=== PATIENT | female | born 1940 | race Caucasian/White ===

== ENCOUNTER 2022-06-03 15:55 | Inpatient (IN) | payer BC, MEDICARE ==
[2022-06-03] MEDS ORDERED: HYDROmorphone 1 MG/ML Syringe IVPUSH ONE (16:29)
[2022-06-03] MEDS ORDERED: Ondansetron 4 MG/2 ML SDV IVPUSH PRN (16:31)
[2022-06-03] MEDS ORDERED: HYDROmorphone 0.5 MG/0.5 ML Syringe IVPUSH PRN (16:31)
[2022-06-03] MEDS: Dextrose 5%-Lactated Ringers 1,000 ML IV SCH (17:31)
[2022-06-03] MEDS: Pramipexole 0.5 MG Tab PO SCH (20:55)
[2022-06-04] MEDS: Dextrose 5%-Lactated Ringers 1,000 ML IV SCH ×2 (01:19→09:12)
[2022-06-04] MEDS: Lisinopril 20 MG Tab PO SCH (09:10)
[2022-06-04] MEDS: Potassium Phos in 0.9 % NaCl 15 MMOL in Premix Bag 1 BAG IV SCH ×4 (11:45→15:35)
[2022-06-04] MEDS ORDERED: SODIUM CHLORIDE 0.9% NERVRT SCH ×4 (12:00)
[2022-06-04] MEDS ORDERED: KETAMINE IV SCH (12:00)
[2022-06-04] MEDS ORDERED: ROPIVACAINE NERVRT SCH ×4 (12:00)
[2022-06-04] MEDS ORDERED: EPINEPHRINE NERVRT SCH ×4 (12:00)
[2022-06-04] MEDS ORDERED: DEXAMETHASONE NERVRT SCH ×4 (12:00)
[2022-06-04] MEDS ORDERED: SODIUM CHLORIDE 0.9% IV SCH (12:00)
[2022-06-04] MEDS ORDERED: Ketamine 500 MG/5 ML MDV IV SCH (12:00)
[2022-06-04] MEDS ORDERED: Acetaminophen 325 MG Tab PO PRN (17:55)
[2022-06-04] MEDS: Pramipexole 0.5 MG Tab PO SCH (20:56)
[2022-06-05] MEDS: Dextrose 5%-Lactated Ringers 1,000 ML IV SCH ×2 (01:49→09:48)
[2022-06-05 05:26] LABS: ESTIMATED GFR 94 mL/min (>60)
[2022-06-05] MEDS ORDERED: Bupivacaine 0.5% 50 ML MDV ONE (06:51)
[2022-06-05] MEDS ORDERED: Meropenem 500 MG SDV ONE (06:51)
[2022-06-05] MEDS ORDERED: Lidocaine 1% with EPINEPHrine 1:100,000 50 ML MDV ONE (06:52)
[2022-06-05] MEDS ORDERED: Potassium Chloride 20 MEQ Tab.ER PO ONE (09:00)
[2022-06-05] MEDS: Lisinopril 20 MG Tab PO SCH (09:48)
[2022-06-05] MEDS ORDERED: fentaNYL 250 MCG/5 ML SDV ONE (11:00)
[2022-06-05] MEDS ORDERED: Neostigmine Methylsulfate 1 MG/ML 5 ML Syringe ONE (11:05)
[2022-06-05] MEDS ORDERED: Succinylcholine 200 MG/10 ML MDV ONE (11:05)
[2022-06-05] MEDS ORDERED: Ondansetron 4 MG/2 ML SDV ONE (11:05)
[2022-06-05] MEDS ORDERED: Rocuronium 50 MG/5 ML Vial ONE ×2 (11:05→13:04)
[2022-06-05] MEDS ORDERED: Glycopyrrolate 0.2 MG/ML 5 ML MDV ONE (11:05)
[2022-06-05] MEDS ORDERED: Dexamethasone 4 MG/ML SDV ONE (11:05)
[2022-06-05] MEDS ORDERED: Propofol 200 MG/20 ML SDV ONE (11:05)
[2022-06-05] MEDS ORDERED: Sodium Chloride 0.9% 10 ML ONE ×2 (11:19→12:50)
[2022-06-05] MEDS ORDERED: ePHEDrine 50 MG/ML SDV ONE (11:19)
[2022-06-05] MEDS ORDERED: cefOXitin 2 GM Vial ONE (11:29)
[2022-06-05] MEDS ORDERED: DEXAMETHASONE NERVRT SCH ×4 (11:45)
[2022-06-05] MEDS ORDERED: ROPIVACAINE NERVRT SCH ×4 (11:45)
[2022-06-05] MEDS ORDERED: Ketamine 500 MG/5 ML MDV IV SCH (11:45)
[2022-06-05] MEDS ORDERED: EPINEPHRINE NERVRT SCH ×4 (11:45)
[2022-06-05] MEDS ORDERED: SODIUM CHLORIDE 0.9% NERVRT SCH ×4 (11:45)
[2022-06-05] MEDS ORDERED: SODIUM CHLORIDE 0.9% IV SCH (11:45)
[2022-06-05] MEDS ORDERED: KETAMINE IV SCH (11:45)
[2022-06-05] MEDS ORDERED: Lactated Ringers 1,000 ML ONE (12:31)
[2022-06-05] MEDS ORDERED: Labetalol 20 MG/4 ML Syringe ONE (12:38)
[2022-06-05] MEDS ORDERED: Phenylephrine 1% 10 MG/ML SDV ONE (12:50)
[2022-06-05] MEDS ORDERED: Acetaminophen 500 MG in Premix Bag 1 BAG IV ONE (13:00)
[2022-06-05] MEDS ORDERED: Ondansetron 4 MG/2 ML SDV IVPUSH PRN (14:15)
[2022-06-05] MEDS ORDERED: diphenhydrAMINE 50 MG/ML SDV IVPUSH PRN ×2 (14:15→17:00)
[2022-06-05] MEDS ORDERED: Naloxone 0.4 MG/ML SDV IVPUSH PRN (14:15)
[2022-06-05] MEDS ORDERED: diphenhydrAMINE 25 MG Cap PO PRN (14:15)
[2022-06-05] MEDS: HYDROmorphone/Normal Saline 6 MG/30 ML PCA Vial IV PRN (14:26)
[2022-06-05] MEDS ORDERED: Naloxone 0.4 MG/ML SDV IV PRN (15:00)
[2022-06-05] MEDS ORDERED: fentaNYL 100 MCG/2 ML SDV ONE (15:04)
[2022-06-05] MEDS ORDERED: Albuterol/Ipratropium 3.0-0.5 MG/3 ML Neb Soln INH PRN (17:00)
[2022-06-05] MEDS ORDERED: hydrOXYzine HCl 50 MG/ML SDV IM PRN (17:00)
[2022-06-05] MEDS: Lactated Ringers 1,000 ML IV SCH (17:01)
[2022-06-05] MEDS: cefOXitin 2 GM in Sodium Chloride 0.9% 50 ML IV SCH (17:53)
[2022-06-05] MEDS: Pantoprazole 40 MG Vial IVPUSH SCH (18:00)
[2022-06-05] MEDS ORDERED: MVI, Adult with Vitamin K 10 ML, Thiamine 200 MG, Zinc/Copper/Manganese/Selenium 1 ML i... IV SCH ×4 (18:00)
[2022-06-05] MEDS ORDERED: Potassium Chloride 20 MEQ Tab.ER ONE (18:18)
[2022-06-05] MEDS: Labetalol 20 MG/4 ML Syringe IVPUSH PRN ×3 (20:41→21:22)
[2022-06-05] MEDS: Albuterol/Ipratropium 3.0-0.5 MG/3 ML Neb Soln INH SCH (20:46)
[2022-06-05] MEDS ORDERED: Lactated Ringers 500 ML IV ONE (21:00)
[2022-06-05] MEDS: Pramipexole 0.5 MG Tab PO SCH (21:06)
[2022-06-05] MEDS: Acetaminophen 500 MG Tab PO SCH (21:07)
[2022-06-06] MEDS: cefOXitin 2 GM in Sodium Chloride 0.9% 50 ML IV SCH ×2 (00:01→05:08)
[2022-06-06] MEDS: Lactated Ringers 1,000 ML IV SCH ×2 (02:33→07:28)
[2022-06-06] MEDS ORDERED: Iopamidol 612 MG/ML 30 ML SDV PO STA (03:16)
[2022-06-06] MEDS: Acetaminophen 500 MG Tab PO SCH ×3 (05:12→21:19)
[2022-06-06 05:54] LABS: ESTIMATED GFR 86 mL/min (>60)
[2022-06-06] MEDS: Ondansetron 4 MG/2 ML SDV IVPUSH PRN (07:27)
[2022-06-06] MEDS: Albuterol/Ipratropium 3.0-0.5 MG/3 ML Neb Soln INH SCH ×3 (07:36→21:22)
[2022-06-06] MEDS ORDERED: Lactated Ringers 1,000 ML IV SCH (08:15)
[2022-06-06] MEDS: Magnesium Sulfate/Water 2 GM/50 ML BAG IV SCH ×3 (09:00→19:45)
[2022-06-06] MEDS: Lisinopril 20 MG Tab PO SCH (09:01)
[2022-06-06] MEDS: Metoclopramide 10 MG/2 ML SDV IVPUSH PRN (09:06)
[2022-06-06] MEDS ORDERED: Sodium Ferric Gluconate Cmplex 250 MG in Sodium Chloride 0.9% 100 ML IV SCH (10:30)
[2022-06-06] MEDS: Labetalol 20 MG/4 ML Syringe IVPUSH PRN ×3 (13:16→14:00)
[2022-06-06] MEDS: 1: AA 5%/Calcium/D15W/Lytes 1,000 ML with MVI, Adult with Vitamin K 10 ML, Zinc/Copper/M IV SCH ×3 (15:45)
[2022-06-06] MEDS ORDERED: MVI, Adult with Vitamin K 10 ML, Thiamine 200 MG, Zinc/Copper/Manganese/Selenium 1 ML i... IV SCH ×4 (16:00)
[2022-06-06] MEDS: Metoprolol Tartrate 25 MG Tab PO SCH ×2 (17:12→21:20)
[2022-06-06] MEDS: Pantoprazole 40 MG Vial IVPUSH SCH (17:12)
[2022-06-06] MEDS: Pramipexole 0.5 MG Tab PO SCH (21:20)
[2022-06-07] MEDS: hydrALAZINE 20 MG/ML SDV IVPUSH PRN (01:42)
[2022-06-07] MEDS: Magnesium Sulfate/Water 2 GM/50 ML BAG IV SCH ×4 (01:46→19:36)
[2022-06-07] MEDS: Ondansetron 4 MG/2 ML SDV IVPUSH PRN (02:35)
[2022-06-07] MEDS: Metoprolol Tartrate 25 MG Tab PO SCH (03:59)
[2022-06-07 05:28] LABS: ESTIMATED GFR 94 mL/min (>60)
[2022-06-07] MEDS: Acetaminophen 500 MG Tab PO SCH ×3 (06:20→21:07)
[2022-06-07] MEDS ORDERED: Bupivacaine 0.5% 50 ML MDV ONE (06:37)
[2022-06-07] MEDS ORDERED: Meropenem 500 MG SDV ONE (06:37)
[2022-06-07] MEDS ORDERED: Lidocaine 1% with EPINEPHrine 1:100,000 50 ML MDV ONE (06:37)
[2022-06-07] MEDS ORDERED: EPINEPHRINE NERVRT SCH ×4 (07:15)
[2022-06-07] MEDS ORDERED: Propofol 200 MG/20 ML SDV ONE (07:15)
[2022-06-07] MEDS ORDERED: DEXAMETHASONE NERVRT SCH ×4 (07:15)
[2022-06-07] MEDS ORDERED: ROPIVACAINE NERVRT SCH ×4 (07:15)
[2022-06-07] MEDS ORDERED: SODIUM CHLORIDE 0.9% NERVRT SCH ×4 (07:15)
[2022-06-07] MEDS: Albuterol/Ipratropium 3.0-0.5 MG/3 ML Neb Soln INH SCH ×4 (07:16→21:10)
[2022-06-07] MEDS ORDERED: Ondansetron 4 MG/2 ML SDV ONE (07:26)
[2022-06-07] MEDS: 1: AA 5%/Calcium/D15W/Lytes 1,000 ML with MVI, Adult with Vitamin K 10 ML, Zinc/Copper/M IV SCH ×3 (08:28)
[2022-06-07] MEDS: Lisinopril 20 MG Tab PO SCH (08:30)
[2022-06-07] MEDS: Metoprolol Succinate 50 MG Tab.ER PO SCH (08:30)
[2022-06-07] MEDS ORDERED: Cyanocobalamin (Vitamin B12) 1,000 MCG/ML SDV IM ONE (09:00)
[2022-06-07] MEDS: HYDROmorphone/Normal Saline 6 MG/30 ML PCA Vial IV PRN (13:37)
[2022-06-07] MEDS: Fat Emulsion 100 ML IV SCH (17:16)
[2022-06-07] MEDS: Pantoprazole 40 MG Vial IVPUSH SCH (17:16)
[2022-06-07] MEDS: Lactated Ringers 1,000 ML IV SCH (17:26)
[2022-06-07] MEDS: Pramipexole 0.5 MG Tab PO SCH (21:08)
[2022-06-08] MEDS: 1: AA 5%/Calcium/D15W/Lytes 1,000 ML with MVI, Adult with Vitamin K 10 ML, Zinc/Copper/M IV SCH ×6 (00:40→16:38)
[2022-06-08] MEDS: Magnesium Sulfate/Water 2 GM/50 ML BAG IV SCH ×4 (04:24→19:30)
[2022-06-08 04:59] LABS: ESTIMATED GFR 99 mL/min (>60)
[2022-06-08] MEDS: Acetaminophen 500 MG Tab PO SCH ×3 (06:01→21:39)
[2022-06-08] MEDS ORDERED: Potassium Phosphates 3 mMole/ML 15 ML SDV IV ONE (07:12)
[2022-06-08] MEDS ORDERED: Central Total Parenteral Nutrition Bag SCH (07:15)
[2022-06-08] MEDS: Albuterol/Ipratropium 3.0-0.5 MG/3 ML Neb Soln INH SCH ×3 (07:19→21:40)
[2022-06-08] MEDS ORDERED: Potassium Chloride 20 MEQ in Premix Bag 1 BAG IV ONE (08:00)
[2022-06-08] MEDS: Metoprolol Succinate 50 MG Tab.ER PO SCH (08:06)
[2022-06-08] MEDS: Lisinopril 20 MG Tab PO SCH (08:06)
[2022-06-08] MEDS: Lactated Ringers 1,000 ML IV SCH (08:24)
[2022-06-08] MEDS: Ondansetron 4 MG/2 ML SDV IVPUSH PRN (08:56)
[2022-06-08] MEDS: Metoclopramide 10 MG/2 ML SDV IVPUSH PRN (10:03)
[2022-06-08] MEDS ORDERED: Sodium Ferric Gluconate Cmplex 250 MG in Sodium Chloride 0.9% 100 ML IV ONE ×2 (10:30→17:30)
[2022-06-08] MEDS: Potassium Phosphates 20 MMOLE in Sodium Chloride 0.9% 100 ML IV SCH ×3 (11:13→18:05)
[2022-06-08] MEDS: Fat Emulsion 100 ML IV SCH (19:23)
[2022-06-08] MEDS: Pantoprazole 40 MG Vial IVPUSH SCH (19:24)
[2022-06-08] MEDS: Pramipexole 0.5 MG Tab PO SCH (21:40)
[2022-06-09] MEDS: Magnesium Sulfate/Water 2 GM/50 ML BAG IV SCH (01:32)
[2022-06-09] MEDS: Ondansetron 4 MG/2 ML SDV IVPUSH PRN ×2 (01:32→15:05)
[2022-06-09 05:14] LABS: ESTIMATED GFR 99 mL/min (>60)
[2022-06-09] MEDS: Acetaminophen 500 MG Tab PO SCH ×3 (05:41→21:10)
[2022-06-09] MEDS: Albuterol/Ipratropium 3.0-0.5 MG/3 ML Neb Soln INH SCH ×3 (07:04→21:13)
[2022-06-09] MEDS ORDERED: Central Total Parenteral Nutrition Bag SCH (07:45)
[2022-06-09] MEDS: Metoprolol Succinate 50 MG Tab.ER PO SCH (08:16)
[2022-06-09] MEDS: Docusate Sodium 100 MG Cap PO SCH ×2 (08:16→21:09)
[2022-06-09] MEDS: Bisacodyl 5 MG Tab PO SCH ×2 (08:17→21:09)
[2022-06-09] MEDS: Lisinopril 20 MG Tab PO SCH (08:17)
[2022-06-09] MEDS: 1: AA 5%/Calcium/D15W/Lytes 1,000 ML with MVI, Adult with Vitamin K 10 ML, Zinc/Copper/M IV SCH ×3 (09:04)
[2022-06-09] MEDS: HYDROmorphone/Normal Saline 6 MG/30 ML PCA Vial IV PRN (09:25)
[2022-06-09] MEDS: Hyoscyamine 0.125 MG Tab.SL SL SCH ×3 (09:27→21:10)
[2022-06-09] MEDS: Fat Emulsion 100 ML IV SCH (17:14)
[2022-06-09] MEDS: Pantoprazole 40 MG Vial IVPUSH SCH (17:14)
[2022-06-09] MEDS: Metoclopramide 10 MG/2 ML SDV IVPUSH PRN (17:46)
[2022-06-09] MEDS: Pramipexole 0.5 MG Tab PO SCH (21:09)
[2022-06-10] MEDS: 1: AA 5%/Calcium/D15W/Lytes 1,000 ML with MVI, Adult with Vitamin K 10 ML, Zinc/Copper/M IV SCH ×6 (01:32→17:58)
[2022-06-10] MEDS: Hyoscyamine 0.125 MG Tab.SL SL SCH ×4 (03:30→20:59)
[2022-06-10] MEDS: hydrALAZINE 20 MG/ML SDV IVPUSH PRN ×2 (03:48→22:43)
[2022-06-10 05:32] LABS: ESTIMATED GFR 99 mL/min (>60)
[2022-06-10] MEDS: Acetaminophen 500 MG Tab PO SCH ×3 (06:28→21:00)
[2022-06-10] MEDS: Albuterol/Ipratropium 3.0-0.5 MG/3 ML Neb Soln INH SCH ×3 (06:58→21:02)
[2022-06-10] MEDS: Bisacodyl 5 MG Tab PO SCH ×2 (09:35→20:59)
[2022-06-10] MEDS: Lisinopril 20 MG Tab PO SCH (09:35)
[2022-06-10] MEDS: Docusate Sodium 100 MG Cap PO SCH ×2 (09:35→20:59)
[2022-06-10] MEDS: Metoprolol Succinate 50 MG Tab.ER PO SCH (09:36)
[2022-06-10] MEDS ORDERED: HYDROmorphone 0.5 MG/0.5 ML Syringe IVPUSH PRN (10:37)
[2022-06-10] MEDS: Enoxaparin 40 MG/0.4 ML Syringe SUBCUT SCH (11:07)
[2022-06-10] MEDS: Lactated Ringers 1,000 ML IV SCH (11:12)
[2022-06-10] MEDS: Ondansetron 4 MG/2 ML SDV IVPUSH PRN (12:57)
[2022-06-10] MEDS: Fat Emulsion 100 ML IV SCH (17:58)
[2022-06-10] MEDS: Pantoprazole 40 MG Vial IVPUSH SCH (18:21)
[2022-06-10] MEDS: Pramipexole 0.5 MG Tab PO SCH (20:59)
[2022-06-10] MEDS: Melatonin 3 MG Tab PO SCH (21:00)
[2022-06-11] MEDS: Hyoscyamine 0.125 MG Tab.SL SL SCH ×4 (03:28→22:29)
[2022-06-11 05:23] LABS: ESTIMATED GFR 106 mL/min (>60)
[2022-06-11] MEDS: Acetaminophen 500 MG Tab PO SCH ×3 (05:41→22:29)
[2022-06-11] MEDS: Albuterol/Ipratropium 3.0-0.5 MG/3 ML Neb Soln INH SCH ×3 (07:08→20:06)
[2022-06-11] MEDS: Magnesium Sulfate/Water 2 GM in Premix Bag 1 BAG IV SCH ×3 (08:47→20:05)
[2022-06-11] MEDS: Ondansetron 4 MG/2 ML SDV IVPUSH PRN (08:47)
[2022-06-11] MEDS: HYDROmorphone 2 MG Tab PO PRN (08:47)
[2022-06-11] MEDS: Bisacodyl 5 MG Tab PO SCH ×2 (08:48→20:05)
[2022-06-11] MEDS: Enoxaparin 40 MG/0.4 ML Syringe SUBCUT SCH (08:49)
[2022-06-11] MEDS: Docusate Sodium 100 MG Cap PO SCH ×2 (08:49→20:05)
[2022-06-11] MEDS: Metoprolol Succinate 50 MG Tab.ER PO SCH (08:49)
[2022-06-11] MEDS: Lisinopril 20 MG Tab PO SCH (08:49)
[2022-06-11] MEDS: 1: AA 5%/Calcium/D15W/Lytes 1,000 ML with MVI, Adult with Vitamin K 10 ML, Zinc/Copper/M IV SCH ×3 (10:45)
[2022-06-11] MEDS: Pantoprazole 40 MG Vial IVPUSH SCH (18:00)
[2022-06-11] MEDS: Fat Emulsion 100 ML IV SCH (18:00)
[2022-06-11] MEDS: Pramipexole 0.5 MG Tab PO SCH (20:05)
[2022-06-11] MEDS: Melatonin 3 MG Tab PO SCH (20:05)
[2022-06-12] MEDS: Acetaminophen 500 MG Tab PO PRN (02:37)
[2022-06-12] MEDS: 1: AA 5%/Calcium/D15W/Lytes 1,000 ML with MVI, Adult with Vitamin K 10 ML, Zinc/Copper/M IV SCH ×6 (02:44→19:43)
[2022-06-12] MEDS: HYDROmorphone 2 MG Tab PO PRN ×2 (02:44→08:09)
[2022-06-12] MEDS: Magnesium Sulfate/Water 2 GM in Premix Bag 1 BAG IV SCH ×4 (02:45→19:59)
[2022-06-12] MEDS ORDERED: Iopamidol 612 MG/ML 30 ML SDV PO STA (03:07)
[2022-06-12] MEDS: Ondansetron 4 MG/2 ML SDV IVPUSH PRN (03:31)
[2022-06-12] MEDS: Hyoscyamine 0.125 MG Tab.SL SL SCH ×4 (05:03→21:53)
[2022-06-12] MEDS: Acetaminophen 500 MG Tab PO SCH ×3 (05:03→21:53)
[2022-06-12 05:37] LABS: ESTIMATED GFR 99 mL/min (>60)
[2022-06-12] MEDS: Docusate Sodium 100 MG Cap PO SCH ×2 (08:09→21:52)
[2022-06-12] MEDS: Bisacodyl 5 MG Tab PO SCH ×2 (08:10→21:52)
[2022-06-12] MEDS: Lisinopril 20 MG Tab PO SCH (08:10)
[2022-06-12] MEDS: Metoprolol Succinate 50 MG Tab.ER PO SCH (08:11)
[2022-06-12] MEDS: Enoxaparin 40 MG/0.4 ML Syringe SUBCUT SCH (08:11)
[2022-06-12] MEDS: methylPREDNISolone Sodium Succinate 125 MG/2 ML SDV IVPUSH SCH ×3 (08:47→19:47)
[2022-06-12] MEDS: Albuterol/Ipratropium 3.0-0.5 MG/3 ML Neb Soln INH SCH ×3 (08:50→21:56)
[2022-06-12] MEDS: Pantoprazole 40 MG Vial IVPUSH SCH (18:22)
[2022-06-12] MEDS: Lactated Ringers 1,000 ML IV SCH (18:32)
[2022-06-12] MEDS: Fat Emulsion 100 ML IV SCH (19:51)
[2022-06-12] MEDS: Melatonin 3 MG Tab PO SCH (21:52)
[2022-06-12] MEDS: Pramipexole 0.5 MG Tab PO SCH (21:53)
[2022-06-13] MEDS: Magnesium Sulfate/Water 2 GM in Premix Bag 1 BAG IV SCH ×4 (01:46→19:12)
[2022-06-13] MEDS: methylPREDNISolone Sodium Succinate 125 MG/2 ML SDV IVPUSH SCH ×4 (01:47→19:14)
[2022-06-13] MEDS: Hyoscyamine 0.125 MG Tab.SL SL SCH ×4 (05:03→21:12)
[2022-06-13] MEDS: Acetaminophen 500 MG Tab PO SCH ×3 (05:04→21:12)
[2022-06-13] MEDS: Albuterol/Ipratropium 3.0-0.5 MG/3 ML Neb Soln INH SCH ×3 (07:26→21:11)
[2022-06-13] MEDS: Metoprolol Succinate 50 MG Tab.ER PO SCH (08:24)
[2022-06-13] MEDS: Bisacodyl 5 MG Tab PO SCH ×2 (08:24→21:11)
[2022-06-13] MEDS: Enoxaparin 40 MG/0.4 ML Syringe SUBCUT SCH (08:24)
[2022-06-13] MEDS: Lisinopril 20 MG Tab PO SCH (08:24)
[2022-06-13] MEDS: Docusate Sodium 100 MG Cap PO SCH ×2 (08:24→21:11)
[2022-06-13] MEDS: 1: AA 5%/Calcium/D15W/Lytes 1,000 ML with MVI, Adult with Vitamin K 10 ML, Zinc/Copper/M IV SCH ×3 (11:12)
[2022-06-13] MEDS: Pantoprazole 40 MG Vial IVPUSH SCH (17:34)
[2022-06-13] MEDS: Fat Emulsion 100 ML IV SCH (19:12)
[2022-06-13] MEDS: Pramipexole 0.5 MG Tab PO SCH (21:12)
[2022-06-13] MEDS: Melatonin 3 MG Tab PO SCH (21:12)
[2022-06-14] MEDS: HYDROmorphone 2 MG Tab PO PRN (00:20)
[2022-06-14] MEDS: methylPREDNISolone Sodium Succinate 125 MG/2 ML SDV IVPUSH SCH ×4 (01:43→19:45)
[2022-06-14] MEDS: Magnesium Sulfate/Water 2 GM in Premix Bag 1 BAG IV SCH (01:43)
[2022-06-14] MEDS: 1: AA 5%/Calcium/D15W/Lytes 1,000 ML with MVI, Adult with Vitamin K 10 ML, Zinc/Copper/M IV SCH ×6 (03:25→19:56)
[2022-06-14] MEDS: Hyoscyamine 0.125 MG Tab.SL SL SCH ×4 (03:25→21:31)
[2022-06-14] MEDS: Acetaminophen 500 MG Tab PO SCH ×3 (06:06→21:31)
[2022-06-14] MEDS: Albuterol/Ipratropium 3.0-0.5 MG/3 ML Neb Soln INH SCH ×3 (07:29→20:14)
[2022-06-14] MEDS: Docusate Sodium 100 MG Cap PO SCH ×2 (08:18→20:09)
[2022-06-14] MEDS: Metoprolol Succinate 50 MG Tab.ER PO SCH (08:19)
[2022-06-14] MEDS: Enoxaparin 40 MG/0.4 ML Syringe SUBCUT SCH (08:19)
[2022-06-14] MEDS: Lisinopril 20 MG Tab PO SCH (08:19)
[2022-06-14] MEDS: Bisacodyl 5 MG Tab PO SCH ×2 (08:19→20:09)
[2022-06-14] MEDS ORDERED: Potassium Chloride Riders 40 MEQ in Premix Bag 1 BAG IV ONE (10:00)
[2022-06-14] MEDS: Ondansetron 4 MG/2 ML SDV IVPUSH PRN (13:10)
[2022-06-14] MEDS: Pantoprazole 40 MG Tab.CR PO SCH (16:51)
[2022-06-14] MEDS: Fat Emulsion 100 ML IV SCH (17:18)
[2022-06-14] MEDS: hydrALAZINE 20 MG/ML SDV IVPUSH PRN (20:04)
[2022-06-14] MEDS: Pramipexole 0.5 MG Tab PO SCH (20:09)
[2022-06-14] MEDS: Melatonin 3 MG Tab PO SCH (20:10)
[2022-06-14] MEDS: Metoclopramide 10 MG/2 ML SDV IVPUSH PRN (20:14)
[2022-06-15] MEDS: methylPREDNISolone Sodium Succinate 125 MG/2 ML SDV IVPUSH SCH ×4 (01:56→20:28)
[2022-06-15] MEDS: Hyoscyamine 0.125 MG Tab.SL SL SCH ×4 (03:47→22:16)
[2022-06-15] MEDS: Acetaminophen 500 MG Tab PO SCH ×3 (05:26→22:16)
[2022-06-15] MEDS: Albuterol/Ipratropium 3.0-0.5 MG/3 ML Neb Soln INH SCH ×3 (06:57→20:42)
[2022-06-15] MEDS ORDERED: Propofol 200 MG/20 ML SDV ONE (07:21)
[2022-06-15] MEDS: Docusate Sodium 100 MG Cap PO SCH ×2 (08:06→20:35)
[2022-06-15] MEDS: Enoxaparin 40 MG/0.4 ML Syringe SUBCUT SCH (08:06)
[2022-06-15] MEDS: Bisacodyl 5 MG Tab PO SCH ×2 (08:06→20:35)
[2022-06-15] MEDS: Lisinopril 20 MG Tab PO SCH (08:07)
[2022-06-15] MEDS: Metoprolol Succinate 50 MG Tab.ER PO SCH (08:07)
[2022-06-15] MEDS: Lactated Ringers 1,000 ML IV SCH (08:11)
[2022-06-15] MEDS: Potassium Chloride 20 MEQ in Premix Bag 1 BAG IV SCH ×2 (09:21→13:26)
[2022-06-15] MEDS: 1: AA 5%/Calcium/D15W/Lytes 1,000 ML with MVI, Adult with Vitamin K 10 ML, Zinc/Copper/M IV SCH ×3 (12:11)
[2022-06-15] MEDS: Nystatin Susp 100,000 Unit/ML 5 ML UD Cup PO SCH ×2 (16:05→22:16)
[2022-06-15] MEDS: Fluconazole/Normal Saline 200 MG in Premix Bag 1 BAG IV SCH (16:05)
[2022-06-15] MEDS: Pantoprazole 40 MG Tab.CR PO SCH (16:15)
[2022-06-15] MEDS: Fat Emulsion 100 ML IV SCH (17:22)
[2022-06-15] MEDS: Melatonin 3 MG Tab PO SCH (20:37)
[2022-06-15] MEDS: Pramipexole 0.5 MG Tab PO SCH (20:38)
[2022-06-16] MEDS: methylPREDNISolone Sodium Succinate 125 MG/2 ML SDV IVPUSH SCH ×4 (03:35→20:22)
[2022-06-16] MEDS ORDERED: Iopamidol 612 MG/ML 30 ML SDV PO STA (03:39)
[2022-06-16] MEDS: 1: AA 5%/Calcium/D15W/Lytes 1,000 ML with MVI, Adult with Vitamin K 10 ML, Zinc/Copper/M IV SCH ×6 (04:36→21:27)
[2022-06-16] MEDS: Hyoscyamine 0.125 MG Tab.SL SL SCH ×4 (04:48→22:01)
[2022-06-16 05:19] LABS: ESTIMATED GFR 99 mL/min (>60)
[2022-06-16] MEDS: Nystatin Susp 100,000 Unit/ML 5 ML UD Cup PO SCH ×4 (05:19→22:00)
[2022-06-16] MEDS: Acetaminophen 500 MG Tab PO SCH ×3 (05:19→22:00)
[2022-06-16] MEDS: Albuterol/Ipratropium 3.0-0.5 MG/3 ML Neb Soln INH SCH ×3 (07:04→22:08)
[2022-06-16] MEDS: Docusate Sodium 100 MG Cap PO SCH ×2 (08:10→20:23)
[2022-06-16] MEDS: Enoxaparin 40 MG/0.4 ML Syringe SUBCUT SCH (08:10)
[2022-06-16] MEDS: Bisacodyl 5 MG Tab PO SCH ×2 (08:10→20:23)
[2022-06-16] MEDS: Lisinopril 20 MG Tab PO SCH (08:12)
[2022-06-16] MEDS: Metoprolol Succinate 50 MG Tab.ER PO SCH (08:12)
[2022-06-16] MEDS ORDERED: Potassium Chloride Riders 40 MEQ in Premix Bag 1 BAG IV ONE (10:00)
[2022-06-16] MEDS: Potassium Phosphates 15 MMOLE in Sodium Chloride 0.9% 100 ML IV SCH ×2 (14:31→18:32)
[2022-06-16] MEDS: Pantoprazole 40 MG Tab.CR PO SCH (15:55)
[2022-06-16] MEDS: Fluconazole/Normal Saline 200 MG in Premix Bag 1 BAG IV SCH (17:23)
[2022-06-16] MEDS: Fat Emulsion 100 ML IV SCH (17:23)
[2022-06-16] MEDS: Melatonin 3 MG Tab PO SCH (22:00)
[2022-06-16] MEDS: Pramipexole 0.5 MG Tab PO SCH (22:00)
[2022-06-17] MEDS: methylPREDNISolone Sodium Succinate 125 MG/2 ML SDV IVPUSH SCH ×4 (02:21→21:02)
[2022-06-17] MEDS: Hyoscyamine 0.125 MG Tab.SL SL SCH ×4 (03:23→21:02)
[2022-06-17 05:37] LABS: ESTIMATED GFR 106 mL/min (>60)
[2022-06-17] MEDS: Nystatin Susp 100,000 Unit/ML 5 ML UD Cup PO SCH ×4 (05:46→21:02)
[2022-06-17] MEDS: Acetaminophen 500 MG Tab PO SCH ×3 (05:46→21:03)
[2022-06-17] MEDS: Albuterol/Ipratropium 3.0-0.5 MG/3 ML Neb Soln INH SCH (07:30)
[2022-06-17] MEDS: Bisacodyl 5 MG Tab PO SCH ×2 (08:57→21:02)
[2022-06-17] MEDS: Enoxaparin 40 MG/0.4 ML Syringe SUBCUT SCH (08:57)
[2022-06-17] MEDS: Docusate Sodium 100 MG Cap PO SCH ×2 (08:57→21:02)
[2022-06-17] MEDS: Lisinopril 20 MG Tab PO SCH (09:05)
[2022-06-17] MEDS: Metoprolol Succinate 50 MG Tab.ER PO SCH (09:05)
[2022-06-17] MEDS ORDERED: Potassium Chloride Riders 40 MEQ in Premix Bag 1 BAG IV ONE (10:30)
[2022-06-17] MEDS: Magnesium Sulfate/Water 2 GM in Premix Bag 1 BAG IV SCH ×3 (11:53→22:24)
[2022-06-17] MEDS: 1: AA 5%/Calcium/D15W/Lytes 1,000 ML with MVI, Adult with Vitamin K 10 ML, Zinc/Copper/M IV SCH ×3 (15:05)
[2022-06-17] MEDS: Fluconazole/Normal Saline 200 MG in Premix Bag 1 BAG IV SCH (15:56)
[2022-06-17] MEDS ORDERED: Bumetanide 1 MG/4 ML MDV IVPUSH ONE (17:10)
[2022-06-17] MEDS: Potassium Phosphates 15 MMOLE in Sodium Chloride 0.9% 100 ML IV SCH ×2 (17:34→21:00)
[2022-06-17] MEDS: Fat Emulsion 100 ML IV SCH (17:35)
[2022-06-17] MEDS: Pantoprazole 40 MG Tab.CR PO SCH (17:35)
[2022-06-17] MEDS: Pramipexole 0.5 MG Tab PO SCH (21:03)
[2022-06-17] MEDS: Melatonin 3 MG Tab PO SCH (22:23)
[2022-06-18] MEDS: methylPREDNISolone Sodium Succinate 125 MG/2 ML SDV IVPUSH SCH ×2 (02:59→07:41)
[2022-06-18] MEDS: Hyoscyamine 0.125 MG Tab.SL SL SCH ×4 (04:30→23:11)
[2022-06-18] MEDS: Magnesium Sulfate/Water 2 GM in Premix Bag 1 BAG IV SCH ×4 (05:11→23:15)
[2022-06-18 05:17] LABS: ESTIMATED GFR 106 mL/min (>60)
[2022-06-18] MEDS: Nystatin Susp 100,000 Unit/ML 5 ML UD Cup PO SCH ×4 (05:22→23:16)
[2022-06-18] MEDS: Acetaminophen 500 MG Tab PO SCH ×4 (05:22→23:15)
[2022-06-18] MEDS: Acetaminophen 500 MG Tab PO PRN (05:26)
[2022-06-18] MEDS: 1: AA 5%/Calcium/D15W/Lytes 1,000 ML with MVI, Adult with Vitamin K 10 ML, Zinc/Copper/M IV SCH ×3 (07:52)
[2022-06-18] MEDS: Enoxaparin 40 MG/0.4 ML Syringe SUBCUT SCH (08:59)
[2022-06-18] MEDS: Docusate Sodium 100 MG Cap PO SCH ×2 (08:59→20:06)
[2022-06-18] MEDS: Bisacodyl 5 MG Tab PO SCH ×2 (08:59→20:06)
[2022-06-18] MEDS: Lisinopril 20 MG Tab PO SCH (08:59)
[2022-06-18] MEDS: Metoprolol Succinate 50 MG Tab.ER PO SCH (08:59)
[2022-06-18] MEDS ORDERED: Benzocaine/Cetylpyridinium/Menthol Lozenge MUCMEM PRN (09:46)
[2022-06-18] MEDS: Mometasone Furoate Nasal Spray 17 GM Canister NAS SCH ×2 (10:51→20:07)
[2022-06-18] MEDS: Cetirizine 10 MG Tab PO SCH (10:53)
[2022-06-18] MEDS: Pantoprazole 40 MG Tab.CR PO SCH (15:07)
[2022-06-18] MEDS: Fat Emulsion 100 ML IV SCH (17:54)
[2022-06-18] MEDS: Pramipexole 0.5 MG Tab PO SCH (20:06)
[2022-06-18] MEDS: Melatonin 3 MG Tab PO SCH (20:06)
[2022-06-18] MEDS: methylPREDNISolone Sodium Succinate 40 MG/1 ML SDV IV SCH (20:07)
[2022-06-18] MEDS ORDERED: 1: AA 5%/Calcium/D15W/Lytes 1,000 ML with MVI, Adult with Vitamin K 10 ML, Zinc/Copper/M IV SCH ×3 (23:59)
[2022-06-19] MEDS: Hyoscyamine 0.125 MG Tab.SL SL SCH ×2 (04:55→10:45)
[2022-06-19] MEDS: Magnesium Sulfate/Water 2 GM in Premix Bag 1 BAG IV SCH ×2 (04:56→10:46)
[2022-06-19] MEDS: Acetaminophen 500 MG Tab PO SCH ×2 (06:04→14:23)
[2022-06-19] MEDS: Nystatin Susp 100,000 Unit/ML 5 ML UD Cup PO SCH ×2 (06:04→10:45)
[2022-06-19] MEDS ORDERED: Lidocaine 1% 5 ML VIAL INJECT STA (06:45)
[2022-06-19] MEDS: Bisacodyl 5 MG Tab PO SCH (08:06)
[2022-06-19] MEDS: Docusate Sodium 100 MG Cap PO SCH (08:06)
[2022-06-19] MEDS: methylPREDNISolone Sodium Succinate 40 MG/1 ML SDV IV SCH (08:06)
[2022-06-19] MEDS: Enoxaparin 40 MG/0.4 ML Syringe SUBCUT SCH (08:07)
[2022-06-19] MEDS: Mometasone Furoate Nasal Spray 17 GM Canister NAS SCH (08:07)
[2022-06-19] MEDS: Lisinopril 20 MG Tab PO SCH (08:08)
[2022-06-19] MEDS: Metoprolol Succinate 50 MG Tab.ER PO SCH (08:08)
[2022-06-19] MEDS: Cetirizine 10 MG Tab PO SCH (08:09)
[2022-06-19] MEDS ORDERED: Fluconazole 100 MG Tab PO SCH (09:00)
== END 2022-06-19 14:45 | disposition home or self-care (01) | DRG 326 ==
LOC: JP.MS 15:55
PROVIDERS: ADMIT Family Medicine; ATTEND Surgery
PROC: 0D150ZA Bypass Esophagus to Jejunum, Open Approach (ICD-10-PCS; principal; 2022-06-05)
PROC: 0DB50ZZ Excision of Esophagus, Open Approach (ICD-10-PCS; 2022-06-05)
PROC: 0DT80ZZ Resection of Small Intestine, Open Approach (ICD-10-PCS; 2022-06-05)
PROC: 0DB60ZZ Excision of Stomach, Open Approach (ICD-10-PCS; 2022-06-05)
PROC: 0FT20ZZ Resection of Left Lobe Liver, Open Approach (ICD-10-PCS; 2022-06-05)
PROC: 0FBG0ZZ Excision of Pancreas, Open Approach (ICD-10-PCS; 2022-06-05)
PROC: 0DBB0ZZ Excision of Ileum, Open Approach (ICD-10-PCS; 2022-06-05)
PROC: 0WQF0ZZ Repair Abdominal Wall, Open Approach (ICD-10-PCS; 2022-06-05)
PROC: 0DQ80ZZ Repair Small Intestine, Open Approach (ICD-10-PCS; 2022-06-05)
PROC: 05H633Z Insertion of Infusion Device into Left Subclavian Vein, Percutaneous Approach (ICD-10-PCS; 2022-06-05)
PROC: 0WQFXZZ Repair Abdominal Wall, External Approach (ICD-10-PCS; 2022-06-07)
PROC: 0DJ08ZZ Inspection of Upper Intestinal Tract, Via Natural or Artificial Opening Endoscopic (ICD-10-PCS; 2022-06-15)
PROC: 05PYX3Z Removal of Infusion Device from Upper Vein, External Approach (ICD-10-PCS; 2022-06-19)
DX: K31.1 Adult hypertrophic pyloric stenosis (principal); E43 Unspecified severe protein-calorie malnutrition; Z68.1 Body mass index [BMI] 19.9 or less, adult; J43.9 Emphysema, unspecified; H92.01 Otalgia, right ear; J02.9 Acute pharyngitis, unspecified; I10 Essential (primary) hypertension; G25.81 Restless legs syndrome; K21.9 Gastro-esophageal reflux disease without esophagitis; Z98.890 Other specified postprocedural states; Z87.891 Personal history of nicotine dependence; Z98.84 Bariatric surgery status; Z87.81 Personal history of (healed) traumatic fracture
CPT/HCPCS: 36415; 36430; 74019; 74019-26; 74240; 74240-26; 77001; 80053; 82607; 82728; 82746; 83735; 83880; 84100; 84478; 85025; 85027; 86850; 86900; 86901; 86920; 86922; 87070; 87075; 87077; 87186; 87205; 88302; 88305; 88307; 88342; 94640; 97110-GP; 97161-GP; 97530-GP; 97535-GP; 99231; A9270-GY; C9113; J0171; J0330; J0360; J0694; J1100; J1170; J1200; J1450; J1642; J1650; J2185; J2370; J2405; J2704; J2710; J2765; J2795; J2916; J2920; J2930; J3010; J3411; J3420; J3475; J3480; J3490; J7120; J7121; J7620; P9016; P9047; Q9967

== ENCOUNTER 2022-06-22 10:24 | Inpatient (IN) | payer MEDICARE ==
[2022-06-22] MEDS ORDERED: Sodium Chloride 0.9% 10 ML Syringe FLUSH PRN (10:34)
[2022-06-22] MEDS ORDERED: Ampicillin/Sulbactam Na 3 GM in Sodium Chloride 0.9% 100 ML IV ONE (10:53)
[2022-06-22] MEDS ORDERED: Albuterol/Ipratropium 3.0-0.5 MG/3 ML Neb Soln NEB ONE (11:08)
[2022-06-22] MEDS ORDERED: Sodium Chloride 0.9% 500 ML IV ONE ×4 (11:09→15:20)
[2022-06-22] MEDS ORDERED: Sodium Chloride 0.9% 1,000 ML IV SCH (11:15)
[2022-06-22 11:23] LABS: ESTIMATED GFR 86 mL/min (>60)
[2022-06-22] MEDS ORDERED: Iopamidol 755 Mg/ML 100 ML Bottle IV ONE (11:40)
[2022-06-22] MEDS ORDERED: Sodium Chloride 0.9% 10 ML Syringe FLUSH ONE ×2 (11:40→14:40)
[2022-06-22] MEDS ORDERED: Sodium Chloride 0.9% 100 ML IV ONE (11:40)
[2022-06-22 11:48] LABS: CORONAVIRUS COVID-19 NAA NEGATIVE (NEGATIVE)
[2022-06-22] MEDS ORDERED: Potassium Chloride 10 MEQ in Premix Bag 1 BAG IV SCH (12:00)
[2022-06-22] MEDS ORDERED: Levofloxacin/Dextrose 5%-Water 750 MG in Premix Bag 1 BAG IV ONE (12:16)
[2022-06-22] MEDS ORDERED: Succinylcholine 200 MG/10 ML MDV IV ONE (13:00)
[2022-06-22] MEDS ORDERED: Etomidate 2 MG/ML 10 ML SDV IVPUSH ONE (13:00)
[2022-06-22] MEDS: propofoL 100 ML IV SCH (13:37)
[2022-06-22] MEDS ORDERED: Midazolam 1 MG/ML 2 ML SDV IVPUSH ONE (13:58)
[2022-06-22] MEDS ORDERED: Heparin Sodium 5,000 UNITS in Sodium Chloride 0.9% 500 ML IV SCH (14:30)
[2022-06-22] MEDS ORDERED: Iopamidol 612 MG/ML 100 ML Bottle IV ONE (14:40)
[2022-06-22] MEDS ORDERED: Sodium Chloride 0.9% 50 ML IV ONE (14:40)
[2022-06-22] MEDS ORDERED: Albuterol 0.083% 2.5 MG/3 ML Neb Soln NEB PRN (15:20)
[2022-06-22] MEDS ORDERED: Midazolam 1 MG/ML 2 ML SDV IVPUSH PRN (15:20)
[2022-06-22] MEDS ORDERED: Acetaminophen 650 MG Supp RECTAL PRN (15:20)
[2022-06-22] MEDS ORDERED: Ondansetron 4 MG/2 ML SDV IV PRN (15:20)
[2022-06-22] MEDS: Dextrose 5%-0.9% NaCl with KCl 1,000 ML IV SCH (16:04)
[2022-06-22] MEDS ORDERED: Lidocaine 1% 20 ML MDV INJECT ONE (16:10)
[2022-06-22] MEDS: Potassium Chloride 10 MEQ in Premix Bag 1 BAG IV SCH ×2 (16:10→17:15)
[2022-06-22] MEDS: Norepinephrine Bit/D5W Premix 4 MG in Premix Bag 1 BAG IV SCH ×2 (16:45→23:20)
[2022-06-22] MEDS: Hydrocortisone Sodium Succinate 100 MG/2 ML SDV IVPUSH SCH (17:26)
[2022-06-22] MEDS: Meropenem 1 GM in Sodium Chloride 0.9% 100 ML IV SCH (17:27)
[2022-06-22] MEDS: Pantoprazole 40 MG Vial IV SCH (17:35)
[2022-06-22] MEDS ORDERED: Sodium Chloride 0.9% 1,000 ML IV ONE ×2 (18:00→21:15)
[2022-06-22] MEDS: Enoxaparin 30 MG/0.3 ML Syringe SUBCUT SCH (20:32)
[2022-06-23] MEDS: Meropenem 1 GM in Sodium Chloride 0.9% 100 ML IV SCH ×2 (01:17→15:44)
[2022-06-23] MEDS: Dextrose 5%-0.9% NaCl with KCl 1,000 ML IV SCH ×3 (01:58→22:25)
[2022-06-23] MEDS: fentaNYL 50 MCG/ML SDV IVPUSH PRN (02:24)
[2022-06-23] MEDS: Hydrocortisone Sodium Succinate 100 MG/2 ML SDV IVPUSH SCH ×2 (05:07→16:59)
[2022-06-23] MEDS: Norepinephrine Bit/D5W Premix 4 MG in Premix Bag 1 BAG IV SCH ×4 (05:15→21:46)
[2022-06-23] MEDS: propofoL 100 ML IV SCH ×2 (05:18→16:35)
[2022-06-23 05:31] LABS: ESTIMATED GFR 45 mL/min (>60)
[2022-06-23] MEDS ORDERED: Sodium Chloride 0.9% 500 ML IV SCH (05:45)
[2022-06-23] MEDS ORDERED: Rocuronium 50 MG/5 ML Vial ONE (09:50)
[2022-06-23] MEDS: Magnesium Sulfate/Water 2 GM in Premix Bag 1 BAG IV SCH ×3 (10:30→22:04)
[2022-06-23] MEDS ORDERED: Meropenem 500 MG SDV ONE (10:57)
[2022-06-23] MEDS ORDERED: Bupivacaine 0.5% 50 ML MDV ONE (10:57)
[2022-06-23] MEDS ORDERED: Lidocaine 1% with EPINEPHrine 1:100,000 50 ML MDV ONE (10:57)
[2022-06-23] MEDS ORDERED: Levofloxacin/Dextrose 5%-Water 750 MG in Premix Bag 1 BAG IV SCH (13:00)
[2022-06-23] MEDS ORDERED: Meropenem 1 GM in Sodium Chloride 0.9% 100 ML IV SCH (13:00)
[2022-06-23] MEDS ORDERED: Lactated Ringers 1,000 ML ONE (13:07)
[2022-06-23] MEDS ORDERED: Linezolid 600 MG/300 ML Premix Bag IRR ONE (13:45)
[2022-06-23] MEDS ORDERED: fentaNYL 100 MCG/2 ML SDV ONE (13:50)
[2022-06-23] MEDS ORDERED: HYDROmorphone/Normal Saline 6 MG/30 ML PCA Vial IV PRN (15:19)
[2022-06-23] MEDS ORDERED: Naloxone 0.4 MG/ML SDV IV PRN (16:00)
[2022-06-23] MEDS: Heparin Sodium 5,000 UNITS in Sodium Chloride 0.9% 500 ML IV SCH (16:07)
[2022-06-23] MEDS: Pantoprazole 40 MG Vial IV SCH (18:12)
[2022-06-23] MEDS: Enoxaparin 30 MG/0.3 ML Syringe SUBCUT SCH (20:21)
[2022-06-23] MEDS ORDERED: Albumin Human 25 GM in Premix Bag 1 BAG IV ONE (20:49)
[2022-06-24] MEDS: Meropenem 1 GM in Sodium Chloride 0.9% 100 ML IV SCH ×2 (04:12→15:43)
[2022-06-24] MEDS: Magnesium Sulfate/Water 2 GM in Premix Bag 1 BAG IV SCH (04:13)
[2022-06-24] MEDS: Norepinephrine Bit/D5W Premix 4 MG in Premix Bag 1 BAG IV SCH (04:51)
[2022-06-24 05:04] LABS: ESTIMATED GFR 45 mL/min (>60)
[2022-06-24] MEDS ORDERED: Glucagon,Human Recombinant 1 MG Vial IM PRN (05:41)
[2022-06-24] MEDS: Hydrocortisone Sodium Succinate 100 MG/2 ML SDV IVPUSH SCH ×2 (05:47→17:20)
[2022-06-24] MEDS ORDERED: Insulin Lispro 100 Unit/ML 3 ML KwikPen SUBCUT ONE (06:18)
[2022-06-24] MEDS: propofoL 100 ML IV SCH ×2 (07:11→19:09)
[2022-06-24] MEDS: Levofloxacin/Dextrose 5%-Water 750 MG in Premix Bag 1 BAG IV SCH (08:34)
[2022-06-24] MEDS: Insulin Regular in 0.9 % NACL 100 ML IV SCH ×2 (08:42→12:06)
[2022-06-24] MEDS: fentaNYL 50 MCG/ML SDV IVPUSH PRN ×2 (09:36→19:20)
[2022-06-24] MEDS: Linezolid 600 MG in Premix Bag 1 BAG IV SCH ×2 (11:00→22:18)
[2022-06-24] MEDS: 1: AA 4.25%/Calcium/D10W/Lytes 1,000 ML with MVI, Adult with Vitamin K 10 ML, Zinc/Coppe IV SCH ×3 (11:23)
[2022-06-24] MEDS: Sodium Chloride 0.9% 1,000 ML IV SCH (13:10)
[2022-06-24] MEDS ORDERED: Insulin Regular in 0.9 % NACL 100 ML IV SCH (14:15)
[2022-06-24] MEDS: Pantoprazole 40 MG Vial IV SCH (17:21)
[2022-06-24] MEDS ORDERED: Furosemide 20 MG/2 ML VIAL IVPUSH ONE ×2 (19:30→23:12)
[2022-06-24] MEDS: Enoxaparin 30 MG/0.3 ML Syringe SUBCUT SCH (20:13)
[2022-06-25] MEDS ORDERED: Furosemide 20 MG/2 ML VIAL IVPUSH ONE ×3 (01:07→13:00)
[2022-06-25] MEDS: Meropenem 1 GM in Sodium Chloride 0.9% 100 ML IV SCH ×2 (03:13→15:28)
[2022-06-25] MEDS: 1: AA 4.25%/Calcium/D10W/Lytes 1,000 ML with MVI, Adult with Vitamin K 10 ML, Zinc/Coppe IV SCH ×3 (04:21)
[2022-06-25] MEDS: Hydrocortisone Sodium Succinate 100 MG/2 ML SDV IVPUSH SCH ×2 (04:46→16:51)
[2022-06-25 06:10] LABS: ESTIMATED GFR 90 mL/min (>60)
[2022-06-25] MEDS ORDERED: Meropenem 500 MG SDV ONE (06:50)
[2022-06-25] MEDS ORDERED: Bupivacaine 0.5% 50 ML MDV ONE (06:50)
[2022-06-25] MEDS ORDERED: Lidocaine 1% with EPINEPHrine 1:100,000 50 ML MDV ONE (06:50)
[2022-06-25] MEDS: propofoL 100 ML IV SCH (07:07)
[2022-06-25] MEDS: 50% Dextrose in Water 50 ML Syringe IVPUSH PRN (07:13)
[2022-06-25] MEDS: fentaNYL 50 MCG/ML SDV IVPUSH PRN (07:25)
[2022-06-25] MEDS: Sodium Chloride 0.9% 1,000 ML IV SCH (08:23)
[2022-06-25] MEDS: Linezolid 600 MG in Premix Bag 1 BAG IV SCH ×2 (10:59→22:29)
[2022-06-25] MEDS: Insulin Lispro 100 Unit/ML 3 ML KwikPen SUBCUT SCH ×3 (11:10→20:01)
[2022-06-25] MEDS: Potassium Phosphates 20 MMOLE in Sodium Chloride 0.9% 100 ML IV SCH ×3 (12:19→19:07)
[2022-06-25] MEDS: Pantoprazole 40 MG Vial IV SCH (17:40)
[2022-06-25] MEDS: Pramipexole 0.5 MG Tab PO SCH (19:36)
[2022-06-25] MEDS: Enoxaparin 30 MG/0.3 ML Syringe SUBCUT SCH (20:44)
[2022-06-25] MEDS ORDERED: Diltiazem 25 MG/5 ML SDV IVPUSH ONE (21:22)
[2022-06-25] MEDS: Diltiazem 100 MG in Sodium Chloride 0.9% 100 ML IV SCH (21:34)
[2022-06-25] MEDS: 1: AA 5%/Calcium/D15W/Lytes 1,000 ML with MVI, Adult with Vitamin K 10 ML, Zinc/Copper/M IV SCH ×3 (22:03)
[2022-06-25] MEDS ORDERED: Furosemide 40 MG/4 ML VIAL IVPUSH ONE (22:08)
[2022-06-26] MEDS ORDERED: Digoxin 500 MCG/2 ML Amp IVPUSH ONE (01:55)
[2022-06-26] MEDS: Meropenem 1 GM in Sodium Chloride 0.9% 100 ML IV SCH ×2 (03:59→16:27)
[2022-06-26] MEDS: Diltiazem 100 MG in Sodium Chloride 0.9% 100 ML IV SCH (04:25)
[2022-06-26 05:01] LABS: ESTIMATED GFR 86 mL/min (>60)
[2022-06-26] MEDS ORDERED: Calcium Gluconate 2 GM in Sodium Chloride 0.9% 100 ML IV ONE (05:28)
[2022-06-26] MEDS: Hydrocortisone Sodium Succinate 100 MG/2 ML SDV IVPUSH SCH (05:32)
[2022-06-26] MEDS ORDERED: Central Total Parenteral Nutrition Bag SCH (07:15)
[2022-06-26] MEDS: Insulin Lispro 100 Unit/ML 3 ML KwikPen SUBCUT SCH ×3 (07:55→17:28)
[2022-06-26] MEDS: Levofloxacin/Dextrose 5%-Water 750 MG in Premix Bag 1 BAG IV SCH (08:04)
[2022-06-26] MEDS: Pramipexole 0.5 MG Tab PO SCH ×2 (08:12→21:26)
[2022-06-26] MEDS: Linezolid 600 MG in Premix Bag 1 BAG IV SCH ×2 (11:53→23:41)
[2022-06-26] MEDS ORDERED: Potassium Chloride Riders 40 MEQ in Premix Bag 1 BAG IV ONE ×2 (13:00→18:30)
[2022-06-26] MEDS ORDERED: Furosemide 40 MG/4 ML VIAL IVPUSH ONE ×2 (13:00→21:34)
[2022-06-26] MEDS: 1: AA 5%/Calcium/D15W/Lytes 1,000 ML with MVI, Adult with Vitamin K 10 ML, Zinc/Copper/M IV SCH ×3 (14:29)
[2022-06-26] MEDS: Heparin Sodium 5,000 UNITS in Sodium Chloride 0.9% 500 ML IV SCH (15:01)
[2022-06-26] MEDS ORDERED: Potassium Chloride 20 MEQ Tab.ER PO ONE (17:00)
[2022-06-26] MEDS: Pantoprazole 40 MG Vial IV SCH (18:23)
[2022-06-26] MEDS ORDERED: Pramipexole 0.5 MG Tab PO SCH (21:00)
[2022-06-26] MEDS ORDERED: Diltiazem 25 MG/5 ML SDV IVPUSH ONE (21:24)
[2022-06-26] MEDS ORDERED: Diltiazem 100 MG in Sodium Chloride 0.9% 100 ML IV SCH (21:30)
[2022-06-26] MEDS ORDERED: Rocuronium 50 MG/5 ML Vial ONE (21:57)
[2022-06-26] MEDS ORDERED: Norepinephrine Bit/D5W Premix 250 ML ONE (22:02)
[2022-06-26] MEDS ORDERED: propofoL 100 ML ONE (22:05)
[2022-06-26] MEDS: Norepinephrine Bit/D5W Premix 4 MG in Premix Bag 1 BAG IV SCH (22:20)
[2022-06-26] MEDS: propofoL 100 ML IV SCH (22:21)
[2022-06-26] MEDS ORDERED: EPINEPHrine 1:10,000 1 MG/10 ML Syringe IVPUSH ONE (22:45)
[2022-06-26] MEDS ORDERED: Propofol 200 MG/20 ML SDV IVPUSH ONE (22:45)
[2022-06-27] MEDS ORDERED: Sodium Chloride 0.9% 1,000 ML IV SCH ×2 (00:30→08:45)
[2022-06-27] MEDS: Insulin Lispro 100 Unit/ML 3 ML KwikPen SUBCUT SCH ×5 (01:11→20:23)
[2022-06-27] MEDS: Sodium Chloride 0.9% 1,000 ML IV SCH (03:14)
[2022-06-27] MEDS ORDERED: Heparin Sodium 5,000 Units/ML Vial ONE (03:20)
[2022-06-27] MEDS: Heparin Sodium 5,000 UNITS in Sodium Chloride 0.9% 500 ML IV SCH (03:39)
[2022-06-27] MEDS: Meropenem 1 GM in Sodium Chloride 0.9% 100 ML IV SCH ×2 (04:27→15:51)
[2022-06-27 05:27] LABS: ESTIMATED GFR 86 mL/min (>60)
[2022-06-27] MEDS: 1: AA 5%/Calcium/D15W/Lytes 1,000 ML with MVI, Adult with Vitamin K 10 ML, Zinc/Copper/M IV SCH ×3 (06:23)
[2022-06-27] MEDS: Magnesium Sulfate/Water 2 GM/50 ML BAG IV SCH ×3 (08:00→20:03)
[2022-06-27] MEDS: propofoL 100 ML IV SCH ×3 (08:04→21:42)
[2022-06-27] MEDS ORDERED: acetaZOLAMIDE 500 MG Vial IVPUSH SCH (09:00)
[2022-06-27] MEDS: Calcium Gluconate 2 GM in Sodium Chloride 0.9% 100 ML IV SCH ×2 (09:40→17:07)
[2022-06-27] MEDS ORDERED: 1: AA 5%/Calcium/D15W/Lytes 1,000 ML with MVI, Adult with Vitamin K 10 ML, Zinc/Copper/M IV SCH ×3 (10:00)
[2022-06-27] MEDS: Linezolid 600 MG in Premix Bag 1 BAG IV SCH (11:02)
[2022-06-27] MEDS ORDERED: Furosemide 40 MG/4 ML VIAL IVPUSH ONE (16:15)
[2022-06-27] MEDS: 50% Dextrose in Water 50 ML Syringe IVPUSH PRN (16:51)
[2022-06-27] MEDS: acetaZOLAMIDE 500 MG Vial IVPUSH SCH (17:00)
[2022-06-27] MEDS: Pantoprazole 40 MG Vial IV SCH (17:55)
[2022-06-27] MEDS: Pramipexole 0.5 MG Tab PO SCH (21:32)
[2022-06-28] MEDS: acetaZOLAMIDE 500 MG Vial IVPUSH SCH ×4 (01:08→22:38)
[2022-06-28] MEDS: Magnesium Sulfate/Water 2 GM/50 ML BAG IV SCH ×2 (01:39→08:53)
[2022-06-28] MEDS: Meropenem 1 GM in Sodium Chloride 0.9% 100 ML IV SCH ×2 (04:37→16:12)
[2022-06-28] MEDS: Norepinephrine Bit/D5W Premix 4 MG in Premix Bag 1 BAG IV SCH (04:46)
[2022-06-28 05:27] LABS: ESTIMATED GFR 94 mL/min (>60)
[2022-06-28] MEDS ORDERED: Potassium Chloride 10 MEQ in Premix Bag 1 BAG IV ONE (06:02)
[2022-06-28] MEDS ORDERED: Potassium Chloride 10 MEQ in Premix Bag 3 BAG IV SCH (07:00)
[2022-06-28] MEDS: Potassium Chloride 10 MEQ in Premix Bag 1 BAG IV SCH ×3 (07:28→09:48)
[2022-06-28] MEDS: Insulin Lispro 100 Unit/ML 3 ML KwikPen SUBCUT SCH ×4 (07:38→21:00)
[2022-06-28] MEDS: Levofloxacin/Dextrose 5%-Water 750 MG in Premix Bag 1 BAG IV SCH (08:48)
[2022-06-28] MEDS ORDERED: Potassium Chloride Riders 40 MEQ in Premix Bag 1 BAG IV ONE ×2 (12:00→22:00)
[2022-06-28] MEDS ORDERED: Potassium Chloride 20 MEQ Tab.ER PO ONE (17:00)
[2022-06-28] MEDS: Pantoprazole 40 MG Vial IV SCH (18:28)
[2022-06-28] MEDS: Pramipexole 0.5 MG Tab PO SCH (20:51)
[2022-06-28] MEDS: propofoL 100 ML IV SCH (22:20)
[2022-06-29] MEDS: acetaZOLAMIDE 500 MG Vial IVPUSH SCH (03:39)
[2022-06-29] MEDS: Meropenem 1 GM in Sodium Chloride 0.9% 100 ML IV SCH ×2 (03:43→16:04)
[2022-06-29 04:49] LABS: ESTIMATED GFR 90 mL/min (>60)
[2022-06-29] MEDS ORDERED: Potassium Chloride Riders 40 MEQ in Premix Bag 1 BAG IV ONE ×2 (05:30→13:00)
[2022-06-29] MEDS ORDERED: Albumin Human 25 GM in Premix Bag 1 BAG IV SCH ×2 (07:00→10:00)
[2022-06-29] MEDS: Insulin Lispro 100 Unit/ML 3 ML KwikPen SUBCUT SCH ×4 (09:55→20:45)
[2022-06-29] MEDS: fentaNYL 50 MCG/ML SDV IVPUSH PRN (11:26)
[2022-06-29] MEDS ORDERED: Metoprolol Tartrate 5 MG/5 ML SDV IVPUSH ONE (12:45)
[2022-06-29] MEDS: hydrALAZINE 20 MG/ML SDV IVPUSH PRN ×2 (14:32→21:10)
[2022-06-29] MEDS: Pantoprazole 40 MG Vial IV SCH (17:23)
[2022-06-29] MEDS: Pramipexole 0.5 MG Tab PO SCH (21:08)
[2022-06-30] MEDS: Meropenem 1 GM in Sodium Chloride 0.9% 100 ML IV SCH (03:33)
[2022-06-30 05:06] LABS: ESTIMATED GFR 90 mL/min (>60)
[2022-06-30] MEDS: Insulin Lispro 100 Unit/ML 3 ML KwikPen SUBCUT SCH (07:47)
[2022-06-30] MEDS ORDERED: Morphine 2 MG/ML SYRINGE IVPUSH PRN (08:33)
[2022-06-30] MEDS ORDERED: Morphine 2 MG/ML SYRINGE ONE (08:33)
== END 2022-06-30 08:58 | disposition expired | DRG 853 ==
LOC: JP.ED 10:24 → JP.ICU 14:01
PROVIDERS: ADMIT Internal Medicine; ATTEND Hospitalist
PROC: 03HY32Z Insertion of Monitoring Device into Upper Artery, Percutaneous Approach (ICD-10-PCS; 2022-06-22)
PROC: 3E03329 Introduction of Other Anti-infective into Peripheral Vein, Percutaneous Approach (ICD-10-PCS; 2022-06-22)
PROC: 05HM33Z Insertion of Infusion Device into Right Internal Jugular Vein, Percutaneous Approach (ICD-10-PCS; 2022-06-22)
PROC: 4A133R1 Monitoring of Arterial Saturation, Peripheral, Percutaneous Approach (ICD-10-PCS; 2022-06-22)
PROC: 5A1945Z Respiratory Ventilation, 24-96 Consecutive Hours (ICD-10-PCS; 2022-06-22)
PROC: 0DBW0ZZ Excision of Peritoneum, Open Approach (ICD-10-PCS; principal; 2022-06-23)
PROC: 0W9G0ZZ Drainage of Peritoneal Cavity, Open Approach (ICD-10-PCS; 2022-06-23)
PROC: 05H533Z Insertion of Infusion Device into Right Subclavian Vein, Percutaneous Approach (ICD-10-PCS; 2022-06-23)
PROC: 3E0336Z Introduction of Nutritional Substance into Peripheral Vein, Percutaneous Approach (ICD-10-PCS; 2022-06-24)
PROC: 3E033XZ Introduction of Vasopressor into Peripheral Vein, Percutaneous Approach (ICD-10-PCS; 2022-06-24)
PROC: 0WQF0ZZ Repair Abdominal Wall, Open Approach (ICD-10-PCS; 2022-06-25)
PROC: 30233N1 Transfusion of Nonautologous Red Blood Cells into Peripheral Vein, Percutaneous Approach (ICD-10-PCS; 2022-06-25)
PROC: 30233J1 Transfusion of Nonautologous Serum Albumin into Peripheral Vein, Percutaneous Approach (ICD-10-PCS; 2022-06-25)
PROC: 5A09357 Assistance with Respiratory Ventilation, Less than 24 Consecutive Hours, Continuous Positive Airway Pressure (ICD-10-PCS; 2022-06-25)
PROC: 5A09357 Assistance with Respiratory Ventilation, Less than 24 Consecutive Hours, Continuous Positive Airway Pressure (ICD-10-PCS; 2022-06-26)
PROC: 0BH17EZ Insertion of Endotracheal Airway into Trachea, Via Natural or Artificial Opening (ICD-10-PCS; 2022-06-26)
PROC: 5A09457 Assistance with Respiratory Ventilation, 24-96 Consecutive Hours, Continuous Positive Airway Pressure (ICD-10-PCS; 2022-06-26)
DX: A41.51 Sepsis due to Escherichia coli [E. coli] (principal); J15.5 Pneumonia due to Escherichia coli; J96.21 Acute and chronic respiratory failure with hypoxia; K65.1 Peritoneal abscess; J96.22 Acute and chronic respiratory failure with hypercapnia; R65.21 Severe sepsis with septic shock; I47.1 Supraventricular tachycardia; N17.9 Acute kidney failure, unspecified; E87.20 Acidosis, unspecified; J90 Pleural effusion, not elsewhere classified; I96 Gangrene, not elsewhere classified; Z66 Do not resuscitate; J43.9 Emphysema, unspecified; Z20.822 Contact with and (suspected) exposure to COVID-19; D69.6 Thrombocytopenia, unspecified; I48.91 Unspecified atrial fibrillation; E87.6 Hypokalemia; D64.89 Other specified anemias; I10 Essential (primary) hypertension; H91.90 Unspecified hearing loss, unspecified ear; H54.7 Unspecified visual loss; G25.81 Restless legs syndrome; K21.9 Gastro-esophageal reflux disease without esophagitis; Z96.642 Presence of left artificial hip joint; Z79.899 Other long term (current) drug therapy; Z98.890 Other specified postprocedural states; Z87.891 Personal history of nicotine dependence; Z98.84 Bariatric surgery status; R06.02 Shortness of breath
CPT/HCPCS: 0241U; 10005; 31500; 36415; 36430; 36569; 36600; 51702; 71045; 71045-26; 71275; 71275-26; 74177; 74177-26; 80053; 80202; 82150; 82803; 82947; 83605; 83690; 83735; 83880; 84100; 84132; 84145; 84484; 85025; 85027; 85379; 85610; 86850; 86900; 86901; 86920; 86922; 87040; 87070; 87075; 87077; 87186; 87205; 88304; 93005; 93010; 94003; 94640; 94660; 96361; 96365; 96367; 96368; 96375; 97110-GP; 97163-GP; 99223; 99233; 99239; 99285; 99285-25; A9270-GY; C1751; C9113; J0171; J0295; J0330; J0360; J0610; J1120; J1642; J1644; J1650; J1720; J1815; J1815-GY; J1940; J1956; J2020; J2185; J2250; J2270; J2704; J3010; J3370; J3475; J3480; J3490; J7030; J7040; J7050; J7120; J7620; P9016; P9047; Q9967